=== PATIENT | female | born 1970 | race Caucasian/White ===

== ENCOUNTER → 2020-07-17 | Outpatient (CLI) | payer BC | LOC: MC.RAD 08:48 | DX: N63.10 Unspecified lump in the right breast, unspecified quadrant (principal); N63.21 Unspecified lump in the left breast, upper outer quadrant ==

== ENCOUNTER → 2020-07-22 | Outpatient (CLI) | payer BC | LOC: MC.RAD 08:23 | DX: N63.10 Unspecified lump in the right breast, unspecified quadrant (principal) ==